=== PATIENT | female | born 1945 | race Caucasian/White ===

== ENCOUNTER 2017-03-10 22:51 | Emergency (ER) | payer OTHER ==
[~2017-03-10] VITALS: Ht 152.4 cm; Wt 72.0 kg
[~2017-03-10 22:51] MED LIST: LEVO50 PO; LISI-661 PO; LOVA20 PO; METF850T2 PO; OMEP20 PO
[2017-03-10] MEDS ORDERED: LEVO75 PO (22:56)
[2017-03-10] MEDS ORDERED: CLOP75 PO (22:56)
[2017-03-10] MEDS ORDERED: CALC-731 PO (22:56)
[2017-03-10] MEDS ORDERED: MIRALAX PO (22:56)
[2017-03-10 23:07] LABS: GLUCOSE,POINT OF CARE 85 MG/DL (70-110)
[2017-03-10 23:30] LABS: BASOPHILS # (AUTO) 0.07 K/uL (0.00-0.20); BASOPHILS % (AUTO) 0.9 % (0.0-2.0); HEMATOCRIT 37.9 % (36-46); HEMOGLOBIN 12.2 g/dL (12.0-16.0); LYMPHOCYTES # (AUTO) 1.9 K/uL (1.0-4.8); LYMPHOCYTES % (AUTO) 24.3 % (22.0-44.0); MEAN CORPUSCULAR HEMOGLOBIN 27.8 pg (26.0-34.0); MEAN CORPUSCULAR HGB CONC 32.1 G/dL (31.0-37.0); MEAN CORPUSCULAR VOLUME 87 fL (80-100); MONOCYTES # (AUTO) 0.6 K/uL (0.1-1.0); MONOCYTES % (AUTO) 7.4 % (2.0-9.0); NEUTROPHILS # (AUTO) 5.1 K/uL (1.8-7.7); NEUTROPHILS % (AUTO) 64.7 % (40.0-70.0); PLATELET COUNT (AUTO) 248 K/uL (150-450); RED BLOOD CELL COUNT(AUTO) 4.37 MIL/uL (4.00-5.20); RED CELL DISTRIBUTION WIDTH 18.1 % (11.5-14.5); WHITE BLOOD COUNT (AUTO) 7.8 K/uL (4.5-11.0)
[2017-03-10 23:45] LABS: ANION GAP 13 mmol/L (8-16); CALCIUM, TOTAL 9.5 mg/dL (8.8-10.5); CARBON DIOXIDE 26 mmol/L (22-29); CHLORIDE 91 mmol/L (98-107); CREATININE 0.81 mg/dL (0.60-1.30); GLOMERULAR FILTR. RATE CALC > 60 mL/min (>60); POTASSIUM 3.6 mmol/L (3.5-5.1); SODIUM SERUM 130 mmol/L (136-145); UREA NITROGEN, BLOOD 11 mg/dL (7-18)
[2017-03-10 23:58] LABS: B-TYPE NATRIURETIC PEPTIDE 29 pg/mL (0-100)
[2017-03-11 00:02] LABS: APPEARANCE,URINE CLEAR (CLEAR); GLUCOSE, URINE (UA) NEGATIVE (NEGATIVE); KETONES,URINE TRACE mg/dL (NEGATIVE); LEUKOCYTE ESTERASE ,URINE SMALL (NEGATIVE); OCCULT BLOOD,URINE NEGATIVE (NEGATIVE); PROTEIN,URINE NEGATIVE (NEGATIVE)
[2017-03-11 00:05] LABS: ADD UA MICROSCOPIC YES
[2017-03-11 00:10] LABS: ALANINE AMINOTRANSFERASE 35 U/L (12-78); ALBUMIN 4.2 g/dL (3.4-5.0); ASPARTATE AMINOTRANSFERASE 26 U/L (15-37); BILIRUBIN,TOTAL 0.5 mg/dL (0.1-1.0); CREATINE KINASE MB 1.6 ng/mL (0-5); CREATINE KINASE, TOTAL 122 U/L (26-192); TOTAL PROTEIN, SERUM 7.9 g/dL (6.4-8.2)
[2017-03-11 00:17] LABS: RBC,URINE 0-2 /HPF (0-2); SQUAMOUS EPITHELIAL CELL,UR Rare /LPF (None Seen)
[2017-03-11 00:26] LABS: PROTHROMBIN TIME 10.5 SEC (9.4-11.6)
[2017-03-11] MEDS ORDERED: ONDANSETRON HCL 4 MG/2 ML VIAL IVP ONE (00:30)
[2017-03-11] MEDS ORDERED: LORazepam 2 MG/ML VIAL IVP ONE (00:30)
[2017-03-11] MEDS ORDERED: SODIUM CHLORIDE 0.9% 1,000 ML IV ONE (00:30)
[2017-03-11] MEDS ORDERED: ACETAMINOPHEN 500 MG TABLET PO ONE (00:30)
[2017-03-11 01:12] VITALS: BP 135/81
== END 2017-03-11 01:12 | disposition home or self-care (01) ==
LOC: EMS 22:53
DX: E86.0 Dehydration (principal); F41.9 Anxiety disorder, unspecified; R11.0 Nausea; E11.9 Type 2 diabetes mellitus without complications; E78.00 Pure hypercholesterolemia, unspecified; I10 Essential (primary) hypertension; E03.9 Hypothyroidism, unspecified; Z88.0 Allergy status to penicillin; Z88.1 Allergy status to other antibiotic agents; Z88.5 Allergy status to narcotic agent; Z88.2 Allergy status to sulfonamides; Z88.8 Allergy status to other drugs, medicaments and biological substances
CPT/HCPCS: 36415; 71010; 80053; 81001; 82550; 82553; 82962; 83880; 84484; 85025; 85610; 85730; 93005; 96361; 96374; 96375; 99285; J2060; J2405; J7030

== ENCOUNTER 2019-06-24 15:01 | Emergency (ER) | payer OTHER ==
[~2019-06-24] VITALS: Ht 152.4 cm; Wt 59.1 kg
[~2019-06-24 15:01] MED LIST changes: +CALC-20 PO; +CLOP75TA3 PO; -LEVO50 PO; +LEVO75 PO; +METF-445 PO; -METF850T2 PO; +MIRALAX PO
[2019-06-24] MEDS ORDERED: METF-445 PO (15:20)
[2019-06-24] MEDS ORDERED: SPIR25 PO (15:22)
[2019-06-24 17:06] LABS: BASOPHILS % (AUTO) 0.5 % (0.0-2.0); EOSINOPHILS % (AUTO) 1.5 % (1.0-6.0); HEMATOCRIT 38.7 % (36-46); HEMOGLOBIN 13.1 g/dL (12.0-16.0); LYMPHOCYTES # (AUTO) 1.1 K/uL (1.0-4.8); LYMPHOCYTES % (AUTO) 18.5 % (22.0-44.0); MEAN CORPUSCULAR HEMOGLOBIN 31.5 pg (26.0-34.0); MEAN CORPUSCULAR HGB CONC 33.9 G/dL (31.0-37.0); MEAN CORPUSCULAR VOLUME 93 fL (80-100); MONOCYTES # (AUTO) 0.4 K/uL (0.1-1.0); MONOCYTES % (AUTO) 6.1 % (2.0-9.0); NEUTROPHILS # (AUTO) 4.5 K/uL (1.8-7.7); NEUTROPHILS % (AUTO) 73.4 % (40.0-70.0); PLATELET COUNT (AUTO) 276 K/uL (150-450); RED BLOOD CELL COUNT(AUTO) 4.15 MIL/uL (4.00-5.20); RED CELL DISTRIBUTION WIDTH 13.5 % (11.5-14.5)
[2019-06-24 17:20] LABS: PROTHROMBIN TIME 10.1 SEC (9.4-11.6)
[2019-06-24 17:25] LABS: B-TYPE NATRIURETIC PEPTIDE 45 pg/mL (0-100)
[2019-06-24 17:28] LABS: APPEARANCE,URINE CLEAR (CLEAR); BILIRUBIN,URINE NEGATIVE (NEGATIVE); GLUCOSE, URINE (UA) NEGATIVE (NEGATIVE); KETONES,URINE NEGATIVE (NEGATIVE); LEUKOCYTE ESTERASE ,URINE NEGATIVE (NEGATIVE); NITRATE,URINE NEGATIVE (NEGATIVE); OCCULT BLOOD,URINE NEGATIVE (NEGATIVE); PROTEIN,URINE NEGATIVE (NEGATIVE); UROBILINOGEN,URINE 0.2 mg/dL (<=1.0)
[2019-06-24 17:35] LABS: CARBON DIOXIDE 28 mmol/L (22-29); CHLORIDE 86 mmol/L (98-107); CREATININE 0.69 mg/dL (0.60-1.30); GLUCOSE,RANDOM 124 mg/dL (70-110); POTASSIUM 4.1 mmol/L (3.5-5.1); UREA NITROGEN, BLOOD 9 mg/dL (7-18)
[2019-06-24 17:36] LABS: ALANINE AMINOTRANSFERASE 21 U/L (12-78); ALBUMIN 4.3 g/dL (3.4-5.0); ALKALINE PHOSPHATASE 64 U/L (46-116); ASPARTATE AMINOTRANSFERASE 16 U/L (15-37); BILIRUBIN,TOTAL 0.5 mg/dL (0.1-1.0); CALCIUM, TOTAL 9.5 mg/dL (8.8-10.5); CREATINE KINASE, TOTAL ONLY 229 U/L (26-192); GLOMERULAR FILTR. RATE CALC > 60 mL/min (>60); TOTAL PROTEIN, SERUM 7.7 g/dL (6.4-8.2)
[2019-06-24 17:38] LABS: ANION GAP 9 mmol/L (8-16); SODIUM SERUM 123 mmol/L (136-145)
[2019-06-24] MEDS ORDERED: SODIUM CHLORIDE 0.9% 1,000 ML IV ONE (18:45)
[2019-06-24] MEDS ORDERED: POLY17PO29 PO (18:50)
[2019-06-24 19:15] VITALS: BP 133/62
== END 2019-06-24 19:56 | disposition home or self-care (01) ==
LOC: EMS 15:04
DX: E86.0 Dehydration (principal); E87.1 Hypo-osmolality and hyponatremia; E11.9 Type 2 diabetes mellitus without complications; I10 Essential (primary) hypertension; E78.00 Pure hypercholesterolemia, unspecified; E03.9 Hypothyroidism, unspecified; Z90.710 Acquired absence of both cervix and uterus; Z88.1 Allergy status to other antibiotic agents; Z88.5 Allergy status to narcotic agent; Z88.0 Allergy status to penicillin; Z88.8 Allergy status to other drugs, medicaments and biological substances; Z79.899 Other long term (current) drug therapy; Z79.84 Long term (current) use of oral hypoglycemic drugs
CPT/HCPCS: 70450; 93005; 96360

== ENCOUNTER 2023-02-17 17:47 | Emergency (ER) | payer OTHER ==
[~2023-02-17] VITALS: Ht 152.4 cm; Wt 60.0 kg
[2023-02-17] MEDS: SODIUM CHLORIDE 0.9% 1,000 ML IV ONE (10:00)
[~2023-02-17 17:47] MED LIST changes: +CALC-1209 PO; -CALC-20 PO; -CLOP75TA3 PO; +CLOP75TA60 PO; -LISI-661 PO; +LISI-893 PO; -LOVA20 PO; +LOVA20TA73 PO; -MIRALAX PO; +POLY17PO52 PO; +SPIR-37 PO
[2023-02-17] MEDS ORDERED: LISI40TA9 PO (18:11)
[2023-02-17] MEDS ORDERED: DOCU-385 PO (18:11)
[2023-02-17] MEDS ORDERED: ATOR20TA PO (18:11)
[2023-02-17] MEDS ORDERED: KETO-99 OU (18:11)
[2023-02-17] MEDS ORDERED: METF-446 PO (18:11)
[2023-02-17] MEDS ORDERED: UBRO100T PO (18:11)
[2023-02-17] MEDS ORDERED: ALEN70TA80 PO (18:11)
[2023-02-17] MEDS ORDERED: NIZO2SH TP (18:11)
[2023-02-17] MEDS ORDERED: MINO60SO50 TP (18:11)
[2023-02-17 20:08] LABS: BASOPHILS % (AUTO) 0.7 % (0.0-2.0); EOSINOPHILS % (AUTO) 5.3 % (1.0-6.0); HEMATOCRIT 39.8 % (36-46); HEMOGLOBIN 13.3 g/dL (12.0-16.0); LYMPHOCYTES # (AUTO) 1.9 K/uL (1.0-4.8); LYMPHOCYTES % (AUTO) 26.9 % (22.0-44.0); MEAN CORPUSCULAR HEMOGLOBIN 30.7 pg (26.0-34.0); MEAN CORPUSCULAR HGB CONC 33.4 G/dL (31.0-37.0); MEAN CORPUSCULAR VOLUME 92 fL (80-100); MONOCYTES # (AUTO) 0.5 K/uL (0.1-1.0); MONOCYTES % (AUTO) 7.2 % (2.0-9.0); NEUTROPHILS # (AUTO) 4.3 K/uL (1.8-7.7); NEUTROPHILS % (AUTO) 59.9 % (40.0-70.0); PLATELET COUNT (AUTO) 282 K/uL (150-450); RED BLOOD CELL COUNT(AUTO) 4.32 MIL/uL (4.00-5.20); RED CELL DISTRIBUTION WIDTH 13.8 % (11.5-14.5)
[2023-02-17] MEDS ORDERED: CALC-1271 PO (20:10)
[2023-02-17] MEDS ORDERED: ATOG10TA PO (20:10)
[2023-02-17 20:16] LABS: COVID AG,FIA SOURCE NASAL SWAB
[2023-02-17 20:18] LABS: ANION GAP 9 mmol/L (8-16); CALCIUM, TOTAL 9.5 mg/dL (8.8-10.5); CARBON DIOXIDE 30 mmol/L (22-29); CHLORIDE 89 mmol/L (98-107); CREATININE 0.62 mg/dL (0.60-1.30); GLOMERULAR FILTR. RATE CALC > 60 mL/min (>60); GLUCOSE,RANDOM 120 mg/dL (70-110); POTASSIUM 3.4 mmol/L (3.5-5.1); SODIUM SERUM 128 mmol/L (136-145)
[2023-02-17 20:23] LABS: ALANINE AMINOTRANSFERASE 14 U/L (12-78); ALBUMIN 4.3 g/dL (3.4-5.0); ALKALINE PHOSPHATASE 62 U/L (46-116); ASPARTATE AMINOTRANSFERASE 17 U/L (15-37); BILIRUBIN,TOTAL 0.5 mg/dL (0.1-1.0); LIPASE 165 U/L (73-393); TOTAL PROTEIN, SERUM 8.3 g/dL (6.4-8.2)
[2023-02-17 20:43] LABS: INFLUENZA TYPE A NEGATIVE FOR TYPE A (NEGATIVE); INFLUENZA TYPE B NEGATIVE FOR TYPE B (NEGATIVE)
[2023-02-17 21:28] LABS: APPEARANCE,URINE CLEAR (CLEAR); BILIRUBIN,URINE NEGATIVE (NEGATIVE); GLUCOSE, URINE (UA) NEGATIVE (NEGATIVE); KETONES,URINE NEGATIVE (NEGATIVE); LEUKOCYTE ESTERASE ,URINE NEGATIVE (NEGATIVE); NITRATE,URINE NEGATIVE (NEGATIVE); OCCULT BLOOD,URINE NEGATIVE (NEGATIVE); PROTEIN,URINE NEGATIVE (NEGATIVE); SPECIFIC GRAVITIY, URINE 1.004 (1.003-1.030); UROBILINOGEN,URINE <=1.0 mg/dL (<=1.0)
[2023-02-17] MEDS ORDERED: IOHEXOL 350 MG/ML 100 ML VIAL ONE (21:32)
[2023-02-17] MEDS ORDERED: SODIUM CHLORIDE 0.9% 100 ML ONE (21:33)
[2023-02-17 23:12] VITALS: BP 158/66
== END 2023-02-18 00:49 | disposition home or self-care (01) ==
LOC: EMS 17:48
DX: R19.7 Diarrhea, unspecified (principal); E11.9 Type 2 diabetes mellitus without complications; E78.00 Pure hypercholesterolemia, unspecified; I10 Essential (primary) hypertension; E03.9 Hypothyroidism, unspecified; Z90.710 Acquired absence of both cervix and uterus; Z90.49 Acquired absence of other specified parts of digestive tract; Z93.3 Colostomy status; Z88.5 Allergy status to narcotic agent; Z88.2 Allergy status to sulfonamides; Z88.0 Allergy status to penicillin; Z88.8 Allergy status to other drugs, medicaments and biological substances; Z20.822 Contact with and (suspected) exposure to COVID-19
CPT/HCPCS: 99285; 70450; 96360; 87426; 80053; 81003; 82271; 82962; 83690; 84484; 85025; 87804; 36415; 74177; 93005; Q9967; J7030; J7050